=== PATIENT | female | born 1965 | race Caucasian/White ===

== ENCOUNTER 2017-08-09 06:07 | Day surgery (SDC) | payer SELFPAY ==
[2017-08-09] VITALS (7 sets, daily range): BP systolic 98–144; BP diastolic 64–77; PULSE 73–90; RESP 16–18; TEMP 36.4–37.3; O2SAT 94–99; BMI 32.5
--- NOTE | 2017-08-09 | EMB_PTH ---
PATIENT: Zeeshan SHEIKH LOC: [facility] U#:[id number] AGE/SX: 51/F ROOM: RE08/09/[address]: Dr. Tiffany Ayala MD : 1965 BED: DIS: 08/09/2017 SPEC #: [id number] RECD: 08/09/17 13:30 STATUS: KENNETH URI #: [id number] KRISTINE: 08/09/17 00:[address]: Tiffany Ayala DEPT: SURGICAL PATHOLOGY RECD BY: Blaze Roque ENTERED: 08/09/17 13:30 SP TYPE: ENDOM BX/C RASHID DR: Dr. Moise Pope MD Tissues: Endometrium, NOS Procedures: Surgery Specimen Level IV HEADER OPERATION: Hysteroscopy, dilation and curettage PRE-OP DIAGNOSIS: Irregular menstrual cycle; thickened endometrium TISSUE SUBMITTED: Endometrial curettings MICROSCOPIC DIAGNOSIS Endometrial curettings: Complex hyperplasia with atypia. Fragments of benign ectocervical epithelium. See comment. IRENE:dave 08/10/17 COMMENT A few fragments of atrophic endometrium are also noted. Case has been reviewed in consultation with Dr. Martin who concurs with the above diagnosis. IDC:AM MICROSCOPIC DESCRIPTION Slides are reviewed. GROSS DESCRIPTION Received in fixative is one container labeled with the patient's name and designated endometrial curettings. The specimen consists of multiple fragments of hemorrhagic soft tissue that in aggregate measure 3 x 2.5 x 0.3 cm. The entire specimen is submitted in one cassette. / IRENE:dave 08/09/17 TC:5 CPT: 85189
[2017-08-09 06:39] LABS: Internal QC Validated? YES +Cl - CLEAR BKGD; Pregnancy, Urine Negative Negative
[2017-08-09 06:51] LABS: International Normalized Ratio 0.9
[2017-08-09 06:52] LABS: Partial Thromboplast Time 24.2 Seconds (24.1-36.2)
[2017-08-09 06:53] LABS: Hematocrit 43.5 % (37-47); Hemoglobin 14.7 g/dl (12.0-15.0); Mean Corp Hgb Conc 33.8 g/gl (32-36); Mean Corpuscular Hgb 30.1 pg (27.0-32.0); Mean Platelet Vol. 10.6 fl (6.2-12.0); Platelet Count 184 K/mm3 (150-450); RBC Distribution Width CV 13.2 % (11.6-14.6); RBC Distribution Width SD 42.7 fl (35.1-43.9); Red Blood Count 4.89 M/mm3 (4.2-5.4); White Blood Count 5.6 K/mm3 (4.4-11.0)
[2017-08-09 06:54] LABS: Scan Indicated on CBC? Y/N NO
[2017-08-09 06:56] LABS: Follicle Stimulating Hormone 75.5 mIU/mL
--- NOTE | 2017-08-09 07:22 | PCM.OPRPT ---
Problem List (1) Postmenopausal bleeding Status: Acute Report of Operation Date of Procedure: 08/09/17
[2017-08-09] MEDS: Lubricating Jelly 60 GM Tube 30 GM TOPICAL (07:34)
--- NOTE | 2017-08-09 07:50 | PCM.DC.D&C ---
Discharge Diet: No Restrictions Discharge Activity: Return to Normal Activity, May Shower, May Take a Tub Bath - in 2 weeks. May shower in (days): 0 - TODAY Weight Bearing Status: Full weight bearing Lifting Restrictions: none Call your doctor if you observe: Fever of 101 or Higher, Inability to urinate, Inability to have a bowel movement, Using more than one pad per hour Cleanse incision/area with: Soap & Water Allergies/Adverse Reactions: Allergies No Known Allergies Allergy (Verified 08/06/17 09:04) Medications to take at Discharge Calcium Carb/Mag Ox/Zinc Sulf [Qkbgmfc-Pzhipbytl-Vgyb Tablet] 2 each PO DAILY 12/03/15 Multivitamins,Ther W-Minerals [Multivitamin With Minerals] 2 tablet PO DAILY 12/03/15 Vitamin B Complex 2 each PO DAILY 12/03/15 Vitamin E Acetate [Vitamin E] 400 unit PO DAILY 12/03/15 Cruciferous 1 tab PO DAILY 08/06/17 Progesterone,Micronized [Prometrium] 60 mg PO DAILY 08/06/17 Primary Care Physician: Moise Pope MD [Primary Care Provider] - Please Follow Up With: Tiffany Ayala MD When: 2 weeks postop
--- NOTE | 2017-08-09 08:01 | PCM.OPRPT ---
Problem List (1) Postmenopausal bleeding Status: Acute Report of Operation Date of Procedure: 08/09/17 - ] Pre-Operative Diagnosis: postmenopausal bleeding Post-Operative Diagnosis: same + thickened endometrium Surgery/Procedure Performed:: D and C, diagnostic hysteroscopy Description of Surgical Findings:: Pelvic exam under anesthesia with uterus sounded to 9.5cm in a retroflexed position. Fully mobile. Adnexa benign bilateral. Endometrium thickened throughout. Type of Anesthesia:: MAC Anesthesiologist: Rangel Lund Special Medications: 1% Lidocaine, 10cc total Specimen's removed: endometrium Drains: none Estimated Blood Loss (mL): minimal Fluids Replaced: Lactated ringers Description of Procedure: Patient NPO since midnight the night before. Presents to OR suite. Underwent MAC anesthesia. Once found to be adequate, placed in the dorsal lithotomy position via the Marcel stirrups. The vault was prepped and draped. Weighted speculum to the vagina. Bladder had been emptied of urine per nursing and straight cath. Anterior lip of cervix grasped with single tooth teneculum. Uterus sounded. The cervical os easily dilated to accommodate a 5mm hysteroscope. Hysteroscope revealed large amount of tissue throughout the endometrium. The hysteroscope was removed and sharp currettage of the endometrium occurred. Collection of the endometrium and sent to pathology for evaluation. Hysteroscope replaced into the endometrial cavity revealed removal of all tissue. All instruments removed from the vagina. Sponge and instrument counts correct x 2. The patient was awakened in stable condition. Grafts/Implants Used: none - Complications none - Admit VTE Documentation VTE Present on Admission: No VTE Mechan Device Prophylaxis: SCD's VTE Pharm Prophylaxis ordered?: No Reason prophylaxis not ordered:: Procedure Not Indicated
== END 2017-08-09 12:09 | disposition home or self-care (01) ==
PROVIDERS: Family Provider Family Medicine; PCP Family Medicine; Visit Provider Obstetrics & Gynecology
PROC: 0UDB8ZZ Extraction of Endometrium, Via Natural or Artificial Opening Endoscopic (ICD-10-PCS; CPT 58558; principal; 2017-08-09 07:20)
DX: N85.02 Endometrial intraepithelial neoplasia [EIN] (principal); N95.0 Postmenopausal bleeding; R93.8 Abnormal findings on diagnostic imaging of other specified body structures
CPT/HCPCS: 58558; 36415; 81025; 83001; 85027; 85610; 85730; 88305; J7120

== ENCOUNTER 2017-09-11 10:31 | Day surgery (SDC) | payer SELFPAY ==
--- NOTE | 2017-09-06 13:02 | EKG12_ITS ---
Test Reason : PREOP Blood Pressure : / mmHG Vent. Rate : 077 BPM Atrial Rate : 077 BPM P-R Int : 154 ms QRS Dur : 080 ms QT Int : 376 ms P-R-T Axes : 029 022 037 degrees QTc Int : 425 ms Normal sinus rhythm Normal ECG Confirmed by RAKAN HEBERT ([id number]), web content editor SHARI SOTO ([id number]) on 09/10/2017 2:50:43 PM Referred By: Tiffany Ayala Confirmed By:RAKAN HEBERT
[2017-09-06 13:41] LABS: White Blood Count 4.8 K/mm3 (4.4-11.0)
[2017-09-06 13:42] LABS: Hematocrit 42.8 % (37-47); Hemoglobin 14.6 g/dl (12.0-15.0); Mean Corp Hgb Conc 34.1 g/gl (32-36); Mean Corpuscular Hgb 29.9 pg (27.0-32.0); Mean Corpuscular Volume 87.5 fL (81-99); Mean Platelet Vol. 10.5 fl (6.2-12.0); Platelet Count 210 K/mm3 (150-450); Red Blood Count 4.89 M/mm3 (4.2-5.4); Scan Indicated on CBC? Y/N NO
[2017-09-06 13:46] LABS: Prothrombin Time (Protime)PT. 13.1 SECONDS (11.7-14.9)
[2017-09-06 13:47] LABS: Partial Thromboplast Time 24.2 Seconds (24.1-36.2)
[2017-09-11] VITALS (11 sets, daily range): BP systolic 110–133; BP diastolic 60–77; PULSE 85–99; RESP 14–18; TEMP 36–36.9; O2SAT 94–100; BMI 31.0
[2017-09-11 11:28] LABS: Internal QC Validated? YES +Cl - CLEAR BKGD; Pregnancy, Urine Negative Negative
[2017-09-11 11:33] LABS: Anion Gap 7 (5-15); BUN 7 mg/dL (7-18); BUN/Creat Ratio 7.7 RATIO (10-20); Calcium,Total 9.4 mg/dL (8.5-10.1); Chloride 104 mmol/L (98-107); Creatinine, Serum 0.91 mg/dL (0.55-1.02); EST Glomerular Filtration Rate 69 mL/min (>60); Est Glom Filt Rate - Afr Amer 83 mL/min (>60); Estimated Creatinine Clearance 59.82 ml/min; Glucose 106 mg/dL (74-106); Potassium 3.8 mmol/L (3.5-5.1); Sodium Level 139 mmol/L (136-145)
--- NOTE | 2017-09-11 12:00 | HYST_PTH ---
PATIENT: Zeeshan SHEIKH LOC: [facility] [facility] U#:[id number] AGE/SX: 52/F ROOM: RE09/11/[address]: Dr. Tiffany Ayala MD : 1965 BED: DIS: 09/12/2017 SPEC #: [id number] RECD: 09/11/17 14:48 STATUS: KENNETH GREWAL #: [id number] KRISTINE: 09/11/17 12:[address]: Tiffany Ayala DEPT: SURGICAL PATHOLOGY RECD BY: Shilo Feliz ENTERED: 09/12/17 05:10 SP TYPE: HYSTERECT OTHR DR: Dr. Moise Pope MD Tissues: Uterus, NOS Procedures: Surgery Specimen Level V HEADER OPERATION: Robotic assisted vaginal hysterectomy, bilateral salping-oo PRE-OP DIAGNOSIS: Complex hyperplasia with atypia TISSUE SUBMITTED: Uterus, cervix, bilateral fallopian tubes and bilateral ovaries MICROSCOPIC DIAGNOSIS Uterus, cervix, bilateral fallopian tubes and bilateral ovaries, vaginal hysterectomy and bilateral salpingo-oophorectomy: Cervix ? chronic cystic cervicitis with tunnel cluster formation. Endometrium ? proliferative endometrium. Myometrium ? intramural leiomyoma (0.5 and 1 cm in greatest dimension). -- focal superficial adenomyosis. Bilateral fallopian tubes ? no pathologic diagnosis Bilateral ovaries ? no pathologic diagnosis Right paratubal cyst. SJ:s 09/12/17 COMMENT Please make reference to previous specimen [id number] endometrial curettings: complex hyperplasia with atypia. The slides are reviewed again. MICROSCOPIC DESCRIPTION Slides are reviewed. GROSS DESCRIPTION Received in fixative is one container labeled with the patient's name and designated uterus, cervix, bilateral fallopian tubes and bilateral ovaries. The specimen consists of a hysterectomy specimen consisting of uterus with cervix and attached bilateral fallopian tubes and ovaries. The uterus with cervix weighs 95 gm and measures 9.5 x 5 x 4 cm. The serosal surface is london and glistening. The ectocervical mucosa is unremarkable. The external os is oval and patulous in contour. The endocervical canal measures 3.5 cm in length and the endocervical mucosa is london, glistening without mass lesion. Sections of the cervix reveals multiple cysts filled with mucoid material. The triangular endometrial cavity measures 5 cm in length and up to 3 cm in width. The endometrium is london, glistening without any mass lesion and measures less than 0.1 cm in thickness. Section of the uterine wall reveals 2 london nodular masses measuring 0.5 and 0.1 cm in greatest dimension. Sections of these masses reveal london whorled cut surfaces without areas of hemorrhage, necrosis or cystic degeneration. Uninvolved uterine wall measures up to 2 cm in thickness. The right fallopian tube measures 7 cm in length and up to 1 cm in diameter. Fimbrial end is identified. Two paratubal cysts are noted, each measuring 0.5 cm in greatest dimension. Sections reveal unremarkable cut surfaces. No tubo-ovarian adhesions are identified. Soft and cystic right ovary measures 3 x 2 x 1.3 cm. Sections reveal diffuse clear to hemorrhagic fluid. The largest cyst measures 1 cm in greatest dimension. The left fallopian tube is similar in appearance to right and measures 8 cm in length and 0.6 cm in diameter. Soft and cystic left ovary measures 3.5 x 2 x 1.5 cm. Sections reveal unremarkable cut surfaces. Balance Engineer sections are submitted in 14 cassettes as follows: 1 - anterior cervix, 2 - posterior cervix, 3-5 - anterior uterine wall, 6-9 - posterior uterine wall and 6 also contained a smaller nodular mass. The endometrium is submitted in entirety. 10 - large nodular mass. 11 ? right fallopian and paratubal cyst, 12 ? right ovary, 13 ? left fallopian tube, 14 ? left ovary. IRENE/klaus 09/10/17 TC:1 CPT: 64262
--- NOTE | 2017-09-11 13:42 | PCM.OPRPT ---
Problem List (1) Complex endometrial hyperplasia with atypia Status: Acute Report of Operation Date of Procedure: 09/11/17 Pre-Operative Diagnosis: Complex endometrial hyperplasia with atypia Post-Operative Diagnosis: Same plus pelvic scar tissue Surgery/Procedure Performed:: Robotic assisted hysterectomy with bilateral salpingo-oophorectomy and enterolysis Description of Surgical Findings:: Uterus was sounded to 10 cm and a somewhat retroflexed position. The posterior fibroid measures 2-3 cm the myometrial tissue. Bilateral adnexa were noted to be benign bilateral ureters well away from the area of operation the left bowel was noted to be adhesed to the left sidewall of the pelvis party plan salesperson: Jazmin - deondre party plan salesperson: Millicent Higginbotham Type of Anesthesia:: General Anesthesiologist: Rangel Lund Special Medications: 2 g of IV cefotetan Specimen's removed: Cervix, uterus, bilateral fallopian tubes, bilateral ovaries Drains: None Estimated Blood Loss (mL): 100 Fluids Replaced: Lactated Ringer's Description of Procedure: . She had undergone a bowel preparation in the home setting. Patient was placed on the patient sandbag for comfort and monitors appropriately placed. Patient underwent a general anesthetic and once found to be adequate, she was placed in the dorsal lithotomy position via the Marcel stirrups. She underwent a tilt test with no movement of the patient. Patient was prepped and draped in the normal sterile fashion. I placed a Yee catheter followed by a weighted speculum to the vagina. The anterior lip of the cervix was grasped and elevated and two sutures were placed at the 3 and 9 o'clock position of the cervix for added uterine manipulation. A large V care was placed to the cervix. All instruments were removed from the vagina after the placement except for the Yee catheter, changing gloves and moving to the top of the patient, the uterus had been measured at the fundus and measuring 14 cm above the fundus of the uterus, an 8 mm incision was made. Veress Needle was placed through the 8 mm incision and water test verified abdominal placement, 2 L of CO2 gas placed into the abdominal cavity. The Veress needle was then removed and the 8 mm robotic camera port was placed. The camera was assembled and placed into the trocar and this is a nondisposable trocar. Abdominal placement was reassured. 2 additional right and left 8 mm incision sites were made for the left and right robotic arms in accordance to the placement of the uterus. These were placed under direct visualization. A 5 mm left upper quadrant port was placed under direct visualization for uterine manipulation along with a right upper 8 mm disposable port for the air seal device. All trochars have been placed under direct visualization. Steep Trendelenburg was incised. At this point in time the robot was then docked to the side of the patient in a parallel fashion. The camera followed by the left and right robotic arms were sequentially attached to those trochars. The left robotic arm became the vessel sealer and the right robotic arm became the mono polar rosenda. At this point in time I degowned and moved from the patient's side to the console of the robot and took over control of the robot. Restoring normal anatomy and enteral lysis occurring on patient's left side was followed by the beginning of the hysterectomy. The left round ligament was grasped cauterized and transected the broad ligament into the anterior posterior leaves and further developing the vesicouterine peritoneum. The infundibulopelvic ligament was then grasped cauterized and transected on the patient's left side well away from the ureter site. Further skeletonization of the uterine vasculature occurred on the patient's left side and sequential grasping and cauterization of the left uterine vessels thus occurred. Moving to the patient's right side the right round ligament was grasped cauterized and transected the broad ligament into anterior posterior leaves and further developing the vesicouterine peritoneum the infundibulopelvic on the patient's right side was grasped cauterized and transected well away from the area of the ureter. The uterine vessels were thus skeletonized the patient's right side and then grasping and cauterization of the uterine vessels occurred on the right side followed by transection. Further development of vesicouterine peritoneum and cauterization of the uterosacral cardinal complex thus occurred on the patient's right side the exact same stuff step then occurred on the patient's left side as well. Colpotomy and the posterior part of the cervix occurred and started moving in a clockwise fashion to approximately the 9 o'clock position returning to the 6 o'clock position then removed in a counterclockwise fashion all the way to the 12 o'clock position and then connected the left-sided 9 o'clock position to the 12 o'clock position to incise complete transection of the cervix away from the vaginal cuff region. My executive sales assistant does remove the cervix uterus fallopian tubes and ovaries through the vaginal region. I bedside executive sales assistant then changed my instruments with the left arm becoming a large grasper in the right arm becoming the Mark suture cut. She sequentially passed over Vicryl suture to me through the 8 mm port and angle stitch was thus incised on the patient's left vaginal cuff connecting the left vaginal cuff to the uterosacral cardinal complex and hemostasis was noted. The exact same suture in the exact same fashion on patient's right side of the vaginal cuff thus occurred. 2 additional 0 Vicryl sutures then were placed in [id number] fashions at the vaginal cuff for complete closure of the vaginal cuff region. All needles were accounted for being removed by my executive sales assistant. The entire pelvic region was then irrigated and hemostasis was noted. Aruna was then placed through the 5 mm port and sequentially placed at the vaginal cuff region. The ureters were noted to be peristalsing bilaterally and well away from the area of operation bilaterally. All instrument were removed from the pelvis region. The robot was then de-docked from the patient's bedside after removal of all the trochars and then removal of the CO2 gas by my executive sales assistant along with the trochars occurred. The incision sites were then closed with 4-0 Monocryl in subcuticular fashion. The sponge, instrument counts and sutures were correct ?2 patient was awakened in stable condition and taken to recovery room for overnight care. Grafts/Implants Used: None - Complications None - Admit VTE Documentation VTE Present on Admission: No VTE Mechan Device Prophylaxis: SCD's VTE Pharm Prophylaxis ordered?: No Reason prophylaxis not ordered:: Treatment Not Indicated
--- NOTE | 2017-09-11 13:56 | OP.PCM_ITS ---
Problem List (1) Complex endometrial hyperplasia with atypia Status: Acute Report of Operation Date of Procedure: 09/11/17 Pre-Operative Diagnosis: Complex endometrial hyperplasia with atypia Post-Operative Diagnosis: Same plus pelvic scar tissue Surgery/Procedure Performed:: Robotic assisted hysterectomy with bilateral salpingo-oophorectomy and enterolysis Description of Surgical Findings:: Uterus was sounded to 10 cm and a somewhat retroflexed position. The posterior fibroid measures 2-3 cm the myometrial tissue. Bilateral adnexa were noted to be benign bilateral ureters well away from the area of operation the left bowel was noted to be adhesed to the left sidewall of the pelvis diet counselor: Jazmin - deondre diet counselor: Millicent iHgginbotham Type of Anesthesia:: General Anesthesiologist: Rangel Lund Special Medications: 2 g of IV cefotetan Specimen's removed: Cervix, uterus, bilateral fallopian tubes, bilateral ovaries Drains: None Estimated Blood Loss (mL): 100 Fluids Replaced: Lactated Ringer's Description of Procedure: . She had undergone a bowel preparation in the home setting. Patient was placed on the patient sandbag for comfort and monitors appropriately placed. Patient underwent a general anesthetic and once found to be adequate, she was placed in the dorsal lithotomy position via the Marcel stirrups. She underwent a tilt test with no movement of the patient. Patient was prepped and draped in the normal sterile fashion. I placed a Yee catheter followed by a weighted speculum to the vagina. The anterior lip of the cervix was grasped and elevated and two sutures were placed at the 3 and 9 o'clock position of the cervix for added uterine manipulation. A large V care was placed to the cervix. All instruments were removed from the vagina after the placement except for the Yee catheter, changing gloves and moving to the top of the patient, the uterus had been measured at the fundus and measuring 14 cm above the fundus of the uterus, an 8 mm incision was made. Veress Needle was placed through the 8 mm incision and water test verified abdominal placement, 2 L of CO2 gas placed into the abdominal cavity. The Veress needle was then removed and the 8 mm robotic camera port was placed. The camera was assembled and placed into the trocar and this is a nondisposable trocar. Abdominal placement was reassured. 2 additional right and left 8 mm incision sites were made for the left and right robotic arms in accordance to the placement of the uterus. These were placed under direct visualization. A 5 mm left upper quadrant port was placed under direct visualization for uterine manipulation along with a right upper 8 mm disposable port for the air seal device. All trochars have been placed under direct visualization. Steep Trendelenburg was incised. At this point in time the robot was then docked to the side of the patient in a parallel fashion. The camera followed by the left and right robotic arms were sequentially attached to those trochars. The left robotic arm became the vessel sealer and the right robotic arm became the mono polar rosenda. At this point in time I degowned and moved from the patient's side to the console of the robot and took over control of the robot. Restoring normal anatomy and enteral lysis occurring on patient's left side was followed by the beginning of the hysterectomy. The left round ligament was grasped cauterized and transected the broad ligament into the anterior posterior leaves and further developing the vesicouterine peritoneum. The infundibulopelvic ligament was then grasped cauterized and transected on the patient's left side well away from the ureter site. Further skeletonization of the uterine vasculature occurred on the patient's left side and sequential grasping and cauterization of the left uterine vessels thus occurred. Moving to the patient' s right side the right round ligament was grasped cauterized and transected the broad ligament into anterior posterior leaves and further developing the vesicouterine peritoneum the infundibulopelvic on the patient's right side was grasped cauterized and transected well away from the area of the ureter. The uterine vessels were thus skeletonized the patient's right side and then grasping and cauterization of the uterine vessels occurred on the right side followed by transection. Further development of vesicouterine peritoneum and cauterization of the uterosacral cardinal complex thus occurred on the patient's right side the exact same stuff step then occurred on the patient's left side as well. Colpotomy and the posterior part of the cervix occurred and started moving in a clockwise fashion to approximately the 9 o' clock position returning to the 6 o'clock position then removed in a counterclockwise fashion all the way to the 12 o'clock position and then connected the left-sided 9 o'clock position to the 12 o'clock position to incise complete transection of the cervix away from the vaginal cuff region. My medical assistant supervisor does remove the cervix uterus fallopian tubes and ovaries through the vaginal region. I bedside medical assistant supervisor then changed my instruments with the left arm becoming a large grasper in the right arm becoming the Mark suture cut. She sequentially passed over Vicryl suture to me through the 8 mm port and angle stitch was thus incised on the patient's left vaginal cuff connecting the left vaginal cuff to the uterosacral cardinal complex and hemostasis was noted. The exact same suture in the exact same fashion on patient's right side of the vaginal cuff thus occurred. 2 additional 0 Vicryl sutures then were placed in [id number] fashions at the vaginal cuff for complete closure of the vaginal cuff region. All needles were accounted for being removed by my medical assistant supervisor. The entire pelvic region was then irrigated and hemostasis was noted. Aruna was then placed through the 5 mm port and sequentially placed at the vaginal cuff region. The ureters were noted to be peristalsing bilaterally and well away from the area of operation bilaterally. All instrument were removed from the pelvis region. The robot was then de-docked from the patient' s bedside after removal of all the trochars and then removal of the CO2 gas by my medical assistant supervisor along with the trochars occurred. The incision sites were then closed with 4-0 Monocryl in subcuticular fashion. The sponge, instrument counts and sutures were correct ?2 patient was awakened in stable condition and taken to recovery room for overnight care. Grafts/Implants Used: None - Complications None - Admit VTE Documentation VTE Present on Admission: No VTE Mechan Device Prophylaxis: SCD's VTE Pharm Prophylaxis ordered?: No Reason prophylaxis not ordered:: Treatment Not Indicated
[2017-09-11] MEDS: Metoclopramide 10 MG/2 ML Vial IV ×2 (14:42→22:31)
[2017-09-11] MEDS: Acetaminophen 500 MG Tablet 1000 MG PO ×2 (17:47→22:35)
[2017-09-11] MEDS: Lactated Ringers 1,000 ML 125 ML IV (21:16)
[2017-09-11] MEDS: Famotidine 20mg IV Push Syringe Q12 300 MG IVP (22:33)
[2017-09-11] MEDS: Ketorolac 30 MG/ML Syringe IV (22:37)
[2017-09-12 02:05] VITALS: BP 118/72; PULSE 77; RESP 16; TEMP 36.9; O2SAT 99
[2017-09-12] MEDS: 0.9% NaCl Peripheral Flush Adult/Peds IV (05:37)
[2017-09-12] MEDS: Acetaminophen 500 MG Tablet 1000 MG PO (05:38)
[2017-09-12] MEDS: Ketorolac 30 MG/ML Syringe IV (05:38)
[2017-09-12] MEDS: Metoclopramide 10 MG/2 ML Vial IV (05:39)
[2017-09-12 05:49] LABS: Hematocrit 37.6 % (37-47); Hemoglobin 12.6 g/dl (12.0-15.0); Mean Corp Hgb Conc 33.5 g/gl (32-36); Mean Corpuscular Hgb 29.3 pg (27.0-32.0); Mean Corpuscular Volume 87.4 fL (81-99); Mean Platelet Vol. 10.1 fl (6.2-12.0); Platelet Count 173 K/mm3 (150-450); RBC Distribution Width CV 13.2 % (11.6-14.6); RBC Distribution Width SD 42.4 fl (35.1-43.9); White Blood Count 9.5 K/mm3 (4.4-11.0)
[2017-09-12 05:51] LABS: Scan Indicated on CBC? Y/N NO
[2017-09-12 07:08] VITALS: O2SAT 96
--- NOTE | 2017-09-12 08:00 | PCM.DC.VHY ---
Discharge Diet: - - No beef, pork or fresh vegetables x 2 weeks after surgery. Increase water intake to a minimum of 100 ounces daily. Discharge Activity: Return to Normal Activity, May Not Drive - while taking narcotic pain medications., May Shower May shower in (days): 0 - TODAY May resume sexual activity in: 6-8 weeks Weight Bearing Status: Full weight bearing Lifting Restrictions: 5 pounds Additional Activity Instructions:: Ambulate often with periods of rest in between Call your doctor if your incision/area has: Continuous Slow Oozing, Sudden Increased Bleeding, Increased Pain/ Swelling, Increased Redness, Foul Smelling Discharge Call your doctor if you observe: Fever of 101 or Higher, Inability to urinate, Inability to have a bowel movement, Using more than one pad per hour, Shortness of breath Remove Dressing in (days):: 0 - TODAY with warm, soapy water Cleanse incision/area with: Soap & Water Allergies/Adverse Reactions: Allergies No Known Allergies Allergy (Verified 09/04/17 10:58) Medications to take at Discharge Calcium Carb/Mag Ox/Zinc Sulf [Oqwrwbn-Scdazquju-Nulb Tablet] 2 each PO DAILY 12/03/15 Multivitamins,Ther W-Minerals [Multivitamin With Minerals] 2 tablet PO DAILY 12/03/15 Vitamin B Complex 2 each PO DAILY 12/03/15 Oxycodone HCl/Acetaminophen [Percocet 5/325] 1 - 2 tablet PO Q4H PRN PRN 7 Days #20 tablet 09/11/17 The following prescriptions were given: Oxycodone HCl/Acetaminophen [Percocet 5/325] 1 - 2 tablet PO Q4H PRN PRN 7 Days #20 tablet PRN Reason: Pain Primary Care Physician: Moise Pope MD [Primary Care Provider] - Please Follow Up With: Tiffany Ayala MD When: 2 weeks postop
--- NOTE | 2017-09-12 08:36 | PCM.PN.OB ---
Patient Problems: Active and Suspected Problems Complex endometrial hyperplasia with atypia (Acute) Subjective: Feels well. No nausea or vomiting. Eating well. + flatus and + voiding this am. - Physical Exam General: Alert HEENT: PERRLA, EOMI, Normocephalic Oral: Moist Mucosa Neck: No Nuchal Rigidity, Thyroid Normal Size and Texture Abdomen: Soft, Non Tender, Non-Distended, - - No guarding, hepatomegaly, splenomegaly, rebound tenderness Extremities: No cyanosis, No edema, No Calf Tenderness Skin: No rashes, Other - No ulcers, lesions Musculoskeletal: No Muscle Wasting Neurological: Cranial nerves II-XII grossly intact Psych/Mental Status: Normal Affect Vital Signs Temp Pulse Resp BP Pulse Ox 98.4 F 77 16 118/72 96 09/12/17 02:05 09/12/17 02:05 09/12/17 02:05 09/12/17 02:05 09/12/17 07:08 Oxygen Delivery Method Room Air Weight: 175 lb 4.28 oz Body Mass Index (BMI) 31.0 Intake and Output for Last 24 Hours 09/10/17 09/11/17 09/12/17 23:59 23:59 23:59 Intake Total 2576 / 2576 1892 / 1892 Output Total 330 / 330 2550 / 2550 Balance 2246 / 2246 -658 / -658 Laboratory Tests Past 24 Hrs 09/11/17 09/11/17 09/12/17 11:02 11:15 05:25 WBC 9.5 RBC 4.30 Hgb 12.6 Hct 37.6 MCV 87.4 MCH 29.3 MCHC 33.5 RDW 13.2 RDW Differential 42.4 Plt Count 173 MPV 10.1 Sodium 139 Potassium 3.8 Chloride 104 Carbon Dioxide 28.0 Anion Gap 7 BUN 7 Creatinine 0.91 Estim Creat Clear Calc 59.82 Est GFR (MDRD) Af Amer 83 Est GFR (MDRD) Non-Af 69 BUN/Creatinine Ratio 7.7 L Glucose 106 Calcium 9.4 Urine Test Negative Medical Necessity - Tobacco Use Smoking Status: Never smoker Assessment/Plan All Active Problems Postmenopausal bleeding (Acute) Complex endometrial hyperplasia with atypia (Acute) Ruptured ovarian cyst (Acute) Endometrial thickening on ultra sound (Acute) Irregular menses (Acute) POD #1 - robotic hysterectomy, bso secondary to complex hyperplasia with atypia ambuating well CBC is stable voiding well + flatus oral intake tolerated well
[2017-09-12 09:49] VITALS: BP 134/75; PULSE 88; RESP 16; TEMP 36.8; O2SAT 99
== END 2017-09-12 10:35 | disposition home or self-care (01) ==
LOC: SDC 10:35 → MS3 12:44
PROVIDERS: Family Provider Family Medicine; PCP Family Medicine; Visit Provider Obstetrics & Gynecology
PROC: 0UT94ZZ Resection of Uterus, Percutaneous Endoscopic Approach (ICD-10-PCS; CPT 58571; principal; 2017-09-11 11:40)
DX: N85.02 Endometrial intraepithelial neoplasia [EIN] (principal); N72 Inflammatory disease of cervix uteri; D25.1 Intramural leiomyoma of uterus; N95.0 Postmenopausal bleeding; N83.8 Other noninflammatory disorders of ovary, fallopian tube and broad ligament; R03.0 Elevated blood-pressure reading, without diagnosis of hypertension; K21.9 Gastro-esophageal reflux disease without esophagitis; F32.9 Major depressive disorder, single episode, unspecified; Z78.0 Asymptomatic menopausal state
CPT/HCPCS: 00840; 58571; S2900; 36415; 80048; 81025; 85027; 85610; 85730; 86850; 86900; 88307; 93005; J7120; A4216; J2405; J3490

== ENCOUNTER → 2018-01-21 11:06 | Outpatient (CLI) | payer SELFPAY ==
[2018-01-21 13:53] LABS: Estradiol 19.2 pg/mL
[2018-01-21 14:01] LABS: Progesterone Level 1.02 ng/mL (See Comment)
== END ==
PROVIDERS: Visit Provider Obstetrics & Gynecology
DX: N94.3 Premenstrual tension syndrome (principal); N92.5 Other specified irregular menstruation; N92.6 Irregular menstruation, unspecified; R53.83 Other fatigue
CPT/HCPCS: 36415; 82670; 84144; 84403